=== PATIENT | female | born 1975 | race Caucasian/White ===

== ENCOUNTER 2016-06-30 13:18 | Emergency (ER) | payer MEDICAID ==
[2016-06-30 13:34] VITALS: BP 105/58; PULSE 88; RESP 20; TEMP 98; O2SAT 99
--- NOTE | 2016-06-30 14:07 | ED PDOC ---
HPI: CCC, URI, Sore Throat Time Seen by Provider: 06/30/16 13:34 Chief Complaint (Nursing): ENT Problem Chief Complaint (Provider): Throat pain History Per: Patient History/Exam Limitations: no limitations Have you had recent travel within the past 21 days to any of the following countries: [place], [place], [place] or [place]?: No Onset/Duration Of Symptoms: Days Current Symptoms Are (Timing): Still Present Location Of Pain: Throat, Diffuse Myalgias Sick Contacts (Context): Family Member(s) Associated Symptoms: Fever (tactile), Sore Throat, Myalgias Additional History Per: Patient Additional Complaint(s): The pt. is a 40yo female with PMHx of Sjogren's syndrome, presents to the ED for evaluation of throat pain and generalized malaise for the past 3 dyas. Pt reports tactile fever and states someone in her household had similar symptoms 3 weeks ago. She reports taking ibuprofen at home, latest dose at 11am today, with no relief, prompting her visit to the ED today. Pt denies any cough, congestion or phlegm productions. She offers no additional medical complaints. Past Medical History Reviewed: Historical Data, Nursing Documentation, Vital Signs Vital Signs: Last Vital Signs Temp 98.0 F 06/30/16 13:33 Pulse 88 06/30/16 13:33 Resp 20 06/30/16 13:33 BP 105/58 L 06/30/16 13:33 Pulse Ox 99 06/30/16 14:09 - Medical History Other PMH: Sjogren's syndrome - Family History Family History: States: Unknown Family Hx - Home Medications Home Medications: Ambulatory Orders Medication Instructions Recorded Amoxicillin/Clavulanate [Augmentin 1 tab PO BID #14 tab 06/30/16 875 MG-125 MG] Ibuprofen [Motrin] 600 mg PO Q6 #20 tab 06/30/16 - Allergies Allergies/Adverse Reactions: Allergies Allergy/AdvReac Type Severity Reaction Status Date / Time No Known Allergies Allergy Verified 06/30/16 13:30 Review of Systems ROS Statement: Except As Marked, All Systems Reviewed And Found Negative Constitutional: Positive for: Fever (tactile), Malaise ENT: Positive for: Throat Pain. Negative for: Nose Congestion Respiratory: Negative for: Cough, Sputum Physical Exam - Reviewed Nursing Documentation Reviewed: Yes Vital Signs Reviewed: Yes - Physical Exam Appears: Positive for: Well, Non-toxic, No Acute Distress Head Exam: Positive for: ATRAUMATIC, NORMAL INSPECTION, NORMOCEPHALIC Skin: Positive for: Normal Color Eye Exam: Positive for: Normal appearance ENT: Positive for: TM Is/Are (clear), Pharyngeal Erythema, Tonsillar Exudate, Tonsillar Swelling (grade 2 tonsillar hypertrophy) Neck: Positive for: Normal, Supple Cardiovascular/Chest: Positive for: Regular Rate, Rhythm Respiratory: Positive for: Normal Breath Sounds. Negative for: Respiratory Distress Neurologic/Psych: Positive for: Alert, Oriented - ECG O2 Sat by Pulse Oximetry: 99 (RA) Pulse Ox Interpretation: Normal Medical Decision Making Medical Decision Making: Time: 1345 Plan: * Disposition - Clinical Impression Clinical Impression: Streptococcal sore throat - Patient ED Disposition Is Patient to be Admitted: No - Disposition Disposition: Routine/Home Disposition Time: 15:31 Condition: GOOD Prescriptions: Amoxicillin/Clavulanate [Augmentin 875 MG-125 MG] 1 tab PO BID #14 tab Ibuprofen [Motrin] 600 mg PO Q6 #20 tab Instructions: Strep Throat (ED) Print Language: JAMAICAN - POA Present On Arrival: None
[2016-06-30] MEDS ORDERED: Amoxicillin-Clav 875-125 mg Tab PO STA (14:58)
== END 2016-06-30 15:39 | disposition home or self-care (01) ==
LOC: H.ER 13:18
DX: J02.0 Streptococcal pharyngitis (principal)